=== PATIENT | female | born 1970 | race Caucasian/White ===

== ENCOUNTER 2019-10-10 13:02 | Outpatient (CLI) | payer OTHER, SELFPAY ==
--- NOTE | ~2019-10-10 | MM_ITS ---
EXAMINATION: MM screening arely BI w jeffery HISTORY: Screening mammogram TECHNIQUE: Craniocaudal and mediolateral oblique 3-D tomosynthesis images were obtained and synthetic 2-D images were generated. CAD analysis was submitted and interpreted. COMPARISON: No prior mammogram is available for comparison at this institution. BREAST PARENCHYMAL COMPOSITION: There are scattered areas of fibroglandular density. FINDINGS: RIGHT BREAST: A mass is present in the middle third of the upper breast best appreciated 4 cm from th e nipple on craniocaudal tomosynthesis image 50/76. LEFT BREAST: There is no evidence of suspicious mass, calcification, or architectural distortion to s uggest malignancy. IMPRESSION: 1. Small right breast mass which may represent the patient's baseline however no comparison is curren tly available. 2. Comparison with prior mammograms is necessary. BI-RADS Category 0: Incomplete: Needs comparison with prior mammograms. Reviewed, dictated and finalized at location A. S INSPECTOR IMPRESSION: 1. Small right breast mass which may represent the patient's baseline however n o comparison is currently available. 2. Comparison with prior mammograms is necessary. BI-RADS Category 0: Incomplete: Needs comparison with prior mammograms.
--- NOTE | ~2019-10-10 | DEXA_ITS ---
Bone Density Report Name: Liliya Walls Age: 48 Sex: Female Ethnicity: White Date of : 1970 Indication: postmenopausal; screening for osteoporosis; Referring Provider: SAGAR KINNEY Study: Bone densitometry was performed. Exam Date: October 10, 2019 Accession number: [id number] Bone Density: Region BMD T-score Z-score Classification AP Spine (L1-L4) 0.972 -0.7 0.1 Normal Femoral Neck (Left) 0.604 -2.2 -1.4 Osteopenia Total Hip (Left) 0.853 -0.7 -0.2 Normal Femoral Neck (Right) 0.587 -2.4 -1.6 Osteopenia Total Hip (Right) 0.827 -0.9 -0.4 Normal Total Hip Mean 0.840 -0.8 -0.3 Normal World Health Organization criteria for BMD impression classify patients as: Normal (T-score at or above -1.0), Osteopenia (T-score between -1.0 and -2.5), or Osteoporosis (T-score at or below -2.5). 10-year Fracture Risk: FRAX not reported because: Treated for osteoporosis Clinical Information Provided by Patient: Is being treated for osteoporosis Has used the following medications: HRT (i.e. estrogen/hormone therapy), Vitamin D, DUAVEE, MTV Patient maximum height was 64 Menopause Age: 46 Does not regularly consume dairy products Drinks caffeinated beverages Onset of menses at age 13 Number of children 2 Impression: The patient has low bone mass, based on the Right Femoral Neck T-score. Discussion: It is important to ask patients whether they are taking their medications and to encourage continued and appropriate compliance with their osteoporosis therapies to reduce fracture risk. It is also important to review their risk factors and encourage appropriate calcium and vitamin D intakes, exercise, fall prevention and other lifestyle measures. Follow-Up: Consider a repeat BMD and Vertebral Fracture Assessment (VFA) exam in 2 years or sooner if medically necessary, to reassess this patient's status. Reported by: [facility] on 10/10/2019 2:02:00 PM. Reviewed, dictated and finalized at location AAnila HIGH
== END 2019-10-10 13:03 ==
PROVIDERS: Visit Provider Obstetrics & Gynecology Gynecology
DX: Z12.31 Encounter for screening mammogram for malignant neoplasm of breast (principal); Z78.0 Asymptomatic menopausal state; R92.8 Other abnormal and inconclusive findings on diagnostic imaging of breast; M85.852 Other specified disorders of bone density and structure, left thigh; M85.851 Other specified disorders of bone density and structure, right thigh
CPT/HCPCS: 77063; 77067; 77080

== ENCOUNTER 2020-05-27 15:24 | Outpatient (CLI) | payer OTHER, SELFPAY ==
--- NOTE | ~2020-05-27 | XR_ITS ---
EXAMINATION: XR ribs BI 3V w CXR 2V INDICATION: Pleurodynia and chest pain TECHNIQUE: PA and lateral views of the chest and 3 views of the bilateral ribs were obtained. COMPARISON: None. FINDINGS: There is mild cortical irregularity at the anterolateral aspect of the right ninth rib. No left-sided rib fracture is identified. The lungs are free of acute opacities. There is no pleural eff usion or pneumothorax. The cardiomediastinal silhouette is normal. Calcified pulmonary nodules are co nsistent with old granulomatous disease. Surgical clips in the right upper quadrant are likely from p rior cholecystectomy. IMPRESSION: 1. Nondisplaced fracture at the anterolateral aspect of the right ninth rib. 2. No acute cardiopulmonary abnormality. Reviewed, dictated and finalized at location A.
== END 2020-05-27 15:25 ==
PROVIDERS: PCP Family Medicine; Visit Provider Nurse Practitioner Family
DX: S22.31XA Fracture of one rib, right side, initial encounter for closed fracture (principal); X58.XXXA Exposure to other specified factors, initial encounter
CPT/HCPCS: 71046; 71110

== ENCOUNTER 2020-07-30 06:42 | Outpatient (NON) | payer OTHER, SELFPAY ==
[2020-08-01 21:25] LABS: SARS-CoV-2 RNA PCR Negative
== END 2020-07-30 06:43 ==
PROVIDERS: PCP Family Medicine; Visit Provider Family Medicine
DX: R68.89 Other general symptoms and signs (principal); Z20.828 Contact with and (suspected) exposure to other viral communicable diseases
CPT/HCPCS: 87635; C9803; U0003

== ENCOUNTER 2020-09-16 06:51 | Outpatient (NON) | payer OTHER, SELFPAY ==
[2020-09-17 00:16] LABS: SARS-CoV-2 RNA PCR Negative
== END 2020-09-16 06:52 ==
PROVIDERS: PCP Family Medicine; Visit Provider Physician Assistant Medical
DX: R68.89 Other general symptoms and signs (principal); Z20.822 Contact with and (suspected) exposure to COVID-19
CPT/HCPCS: C9803; U0003; U0005

== ENCOUNTER 2020-11-17 16:55 | Outpatient (CLI) | payer OTHER, SELFPAY ==
[2020-11-17 17:23] LABS: Hemoglobin A1C 8.5 % (<5.7)
== END 2020-11-17 16:56 | disposition home or self-care (01) ==
LOC: ANHLAB 16:56
PROVIDERS: PCP Family Medicine; Visit Provider Nurse Practitioner Family
DX: E11.9 Type 2 diabetes mellitus without complications (principal)
CPT/HCPCS: 36415; 83036

== ENCOUNTER → 2021-01-12 17:16 | Outpatient (CLI) | payer OTHER, SELFPAY ==
--- NOTE | ~2021-01-12 | MM_ITS ---
EXAMINATION: MM screening arely BI w jeffery HISTORY: Screening mammogram TECHNIQUE: Craniocaudal and mediolateral oblique 3-D tomosynthesis images were obtained and synthetic 2-D images were generated. CAD analysis was submitted and interpreted. COMPARISON: 10/10/2019 bilateral digital screening mammogram 01/04/2018, 12/10/2016 bilateral digital screening mammogram examinations BREAST PARENCHYMAL COMPOSITION: There are scattered areas of fibroglandular density. FINDINGS: There is no evidence of suspicious mass, calcification, or architectural distortion to sugg est malignancy in either breast. There has been no suspicious interval change. IMPRESSION: 1. No mammographic evidence of malignancy. 2. Recommend routine screening mammography in one year. BI-RADS Category 1: Negative Reviewed, dictated and finalized at location A.
== END ==
PROVIDERS: PCP Family Medicine; Visit Provider Obstetrics & Gynecology Gynecology
DX: Z12.31 Encounter for screening mammogram for malignant neoplasm of breast (principal)
CPT/HCPCS: 77063; 77067

== ENCOUNTER 2022-01-26 07:30 | Outpatient (CLI) | payer OTHER, SELFPAY ==
[2022-01-26 08:08] LABS: Bacteria Urine Trace /hpf; Mucus Urine Moderate /lpf; RBC Urine 0-2 /hpf (0-2); Squamous Epithelial Cell Urine Occasional /hpf (Few); WBC Urine 0-3 /hpf (0-3)
[2022-01-26 08:25] LABS: Add Urine Microscopic? YES; Appearance Urine Clear (Clear); Bilirubin Urine 1+ (Negative); Blood Urine Negative (Negative); Color Urine Yellow (Yellow); Glucose Urine UA Trace mg/dL (Negative); Ketones Urine 1+ mg/dL (Negative); Leukocyte Esterase Ur Negative LEU/UL (NEGATIVE); Nitrate Urine Negative (Negative); Protein Urine 1+ mg/dL (Negative); Specific Grav Ur >= 1.030 (1.001-1.035); Urobilinogen Urine 0.2 mg/dL (<2.0); pH Urine 5.5 (5.0-9.0)
== END 2022-01-26 07:31 | disposition home or self-care (01) ==
PROVIDERS: PCP Family Medicine; Visit Provider Family Medicine
DX: R31.9 Hematuria, unspecified (principal)
CPT/HCPCS: 81001; 87086; 87088; 87147

== ENCOUNTER 2022-01-28 12:12 | Outpatient (CLI) | payer OTHER, SELFPAY ==
--- NOTE | ~2022-01-28 | US_ITS ---
US renal BI 01/28/2022 13:51 Procedure: Realtime transabdominal ultrasound of the kidneys and bladder. Indication: Bilateral flank pain Comparison: No prior studies for comparison. Findings: Renal echotexture is normal bilaterally without hydronephrosis, contour deforming mass or r enal calculus. The right kidney measures 10.3 cm and left kidney measures 9.3 cm. Bladder within nor mal limits. Impression: 1: Unremarkable renal ultrasound. No stones, masses or hydronephrosis. Reviewed, dictated and finalized at location A. Impression: 1: Unremarkable renal ultrasound. No stones, masses or hydronephrosis.
== END 2022-01-28 12:13 ==
LOC: MICIMG 12:13
PROVIDERS: PCP Family Medicine; Visit Provider Family Medicine
DX: R31.9 Hematuria, unspecified (principal)
CPT/HCPCS: 76775

== ENCOUNTER → 2022-04-02 10:54 | Outpatient (CLI) | payer OTHER, SELFPAY ==
--- NOTE | ~2022-04-02 | DEXA_ITS ---
Bone Density Report Name: ELISA SHERIDAN Age: 51 Sex: Female Ethnicity: White Date of : 1970 Indication: monitoring treatment; postmenopausal Referring Provider: Bubba, Vandana Study: Bone densitometry was performed. Exam Date: April 02, 2022 Accession number: [id number] Bone Density: Region BMD T-score Z-score Classification AP Spine (L1-L4) 0.982 -0.6 0.4 Normal Femoral Neck (Left) 0.577 -2.5 -1.5 Osteoporosis Total Hip (Left) 0.871 -0.6 0.0 Normal Femoral Neck (Right) 0.597 -2.3 -1.3 Osteopenia Total Hip (Right) 0.841 -0.8 -0.2 Normal Total Hip Mean 0.856 -0.7 -0.1 Normal World Health Organization criteria for BMD impression classify patients as: Normal (T-score at or above -1.0), Osteopenia (T-score between -1.0 and -2.5), or Osteoporosis (T-score at or below -2.5). 10-year Fracture Risk: FRAX not reported because: Some T-score for Spine Total or Hip Total or Femoral Neck at or below -2.5 Treated for osteoporosis Previous Exams: Region Exam Age BMD T-score BMD Change BMD Change Date g/cm2 vs Baseline vs Previous AP Spine(L1-L4) 04/02/2022 51 0.982 -0.6 0.009 0.009 10/10/2019 48 0.972 -0.7 Total Hip(Left) 04/02/2022 51 0.871 -0.6 0.018 0.018 10/10/2019 48 0.853 -0.7 Total Hip(Right) 04/02/2022 51 0.841 -0.8 0.014 0.014 10/10/2019 48 0.827 -0.9 *Denotes significance at 95% confidence level, LSC for AP Spine = 0.022 g/cm2, LSC for Total Hip = 0.027 g/cm2 Clinical Information Provided by Patient: Is being treated for osteoporosis Has used the following medications: Boniva (i.e. ibandronate), Vitamin D, MTV Patient maximum height was 64.0 Menopause Age: 46 No regular weight bearing exercise Drinks caffeinated beverages Onset of menses at age 13 Number of children 2 Impression: The patient has osteoporosis, based on the Left Femoral Neck T-score. No significant bone loss was observed. Discussion: PATIENT UNDER TREATMENT WITH NO SIGNIFICANT BMD LOSS SINCE LAST EXAM. In an untreated patient, BMD typically declines with age. A lack of decline or gain is usually a sign that treatment is efficacious and fracture risk is reduced. It is important to ask patients whether they are taking their medications and to encourage continued and appropriate compliance with their osteoporosis therapies to reduce fracture risk. It is also important to review their risk
--- NOTE | ~2022-04-02 | MM_ITS ---
EXAMINATION: MM screening arely BI w jeffery HISTORY: Screening mammogram TECHNIQUE: Craniocaudal and mediolateral oblique 3-D tomosynthesis images were obtained and synthetic 2-D images were generated. CAD analysis was submitted and interpreted. COMPARISON: 01/12/2021, 10/10/2019, 01/04/2018 bilateral screening mammogram examinations BREAST PARENCHYMAL COMPOSITION: There are scattered areas of fibroglandular density. FINDINGS: There is no evidence of suspicious mass, calcification, or architectural distortion to sugg est malignancy in either breast. There has been no suspicious interval change. IMPRESSION: 1. No mammographic evidence of malignancy. 2. Recommend routine screening mammography in one year. BI-RADS Category 1: Negative Reviewed, dictated and finalized at location B.
== END ==
PROVIDERS: PCP Family Medicine; Visit Provider Nurse Practitioner
DX: Z12.31 Encounter for screening mammogram for malignant neoplasm of breast (principal); Z78.0 Asymptomatic menopausal state; M81.0 Age-related osteoporosis without current pathological fracture; M85.851 Other specified disorders of bone density and structure, right thigh
CPT/HCPCS: 77063; 77067; 77080

== ENCOUNTER 2022-06-07 17:27 | Outpatient (CLI) | payer OTHER, SELFPAY ==
[2022-06-07 18:34] LABS: Calcium 9.8 mg/dL (8.4-10.2); Estimated Glomerular Filt Rate > 60
[2022-06-07 18:46] LABS: Vitamin D 25 Hydroxy 48.8 ng/mL
== END 2022-06-07 17:28 | disposition home or self-care (01) ==
PROVIDERS: PCP Family Medicine; Visit Provider Obstetrics & Gynecology Gynecology
DX: M81.0 Age-related osteoporosis without current pathological fracture (principal)
CPT/HCPCS: 36415; 82306; 82310; 82565

== ENCOUNTER 2022-12-22 07:02 | Outpatient (CLI) | payer OTHER, SELFPAY ==
[2022-12-22 07:30] LABS: Hematocrit 43.9 % (37.0-47.0); Hemoglobin 14.1 g/dL (12.0-15.0); Mean Corpuscular HGB Conc 32.1 g/dl (32-36); Mean Corpuscular Hemoglobin 29.1 pg (26-34); Mean Corpuscular Volume 90.7 fl (80-100); Platelet Count Result 197 k/mm3 (150-375); Red Blood Count 4.84 M/mm3 (4.2-5.4); Red Cell Distribution Width 12.4 % (11.5-14.5); White Blood Count 8.7 K/mm3 (4.5-10.0)
[2022-12-22 08:05] LABS: Alanine Aminotransferase 51 U/L (6-35); Albumin Level 4.3 g/dL (3.5-5.1); Alkaline Phosphatase 72 U/L (38-126); Anion Gap 13 mmol/L (8-16); Aspartate Amino Transferase 59 U/L (14-36); Bilirubin,Total 0.7 mg/dL (0.2-1.3); Blood Urea Nitrogen 17 mg/dL (7-17); Calcium 9.2 mg/dL (8.4-10.2); Carbon Dioxide 22 mmol/L (22-30); Chloride 99 mmol/L (98-107); Cholesterol 91 mg/dL (0-200); Estimated Glomerular Filt Rate > 60; Glucose 302 mg/dL (65-110); LDL Cholesterol Direct < 30 mg/dL; Potassium 4.3 mmol/L (3.4-5.0); Sodium 134 mmol/L (137-145); Triglycerides 647 mg/dL (<150)
[2022-12-22 08:12] LABS: Creatinine Urine 242.7 mg/dL
[2022-12-22 08:30] LABS: MALB Creatinine Ratio 133.6 mg/g (0-30); Microalbumin Urine Random 324.3 mg/L (0-16.7)
== END 2022-12-22 07:03 | disposition home or self-care (01) ==
PROVIDERS: PCP Family Medicine; Visit Provider Nurse Practitioner Family
DX: E11.9 Type 2 diabetes mellitus without complications (principal); E78.2 Mixed hyperlipidemia; Z13.29 Encounter for screening for other suspected endocrine disorder
CPT/HCPCS: 36415; 80053; 80061; 82043; 84443; 85027

== ENCOUNTER 2023-08-19 08:15 | Outpatient (CLI) | payer OTHER, SELFPAY ==
[2023-08-19 09:00] LABS: Calcium 9.3 mg/dL (8.4-10.2); Estimated Glomerular Filt Rate > 60
[2023-08-19 09:32] LABS: Vitamin D 25 Hydroxy 48.8 ng/mL
== END 2023-08-19 08:16 | disposition home or self-care (01) ==
LOC: ANHLAB 08:17
PROVIDERS: PCP Family Medicine; Visit Provider Obstetrics & Gynecology Gynecology
DX: E55.9 Vitamin D deficiency, unspecified (principal)
CPT/HCPCS: 36415; 82306; 82310; 82565

== ENCOUNTER 2023-09-22 04:07 | Day surgery (SDC) | payer OTHER, SELFPAY ==
[2023-08-23 15:08] VITALS: BMI 32.7
--- NOTE | 2023-09-20 09:26 | SUR.PREOP ---
Patient called regarding upcoming procedure. Message left on pt's voicemail regarding appointment times..
[2023-09-22 08:08] VITALS: BP 168/81; PULSE 96; RESP 18; TEMP 36.9; O2SAT 97
[2023-09-22] MEDS: LACTATED RINGERS 1,000 ML 150 ML IV CONT (08:16)
[2023-09-22 08:17] LABS: Glucose Point of Care 209 mg/dl (65-105)
--- NOTE | 2023-09-22 08:18 | WPDANESEPPF ---
Anes - Initial Pre Proc Eval Procedure: Operation Date: 09/22/23 09:00 Proposed Procedures p Esophagogastroduodenoscopy - Josh Torres MD Date/Time: 09/22/23 08:18 Surgeon: Josh Torres MD Pre Op Diagnosis: GERD without esophagitis Patient Data Age: 52 Gender: F Height: 1.63 m Weight: 87.2 kg Last Vital Signs Temp 98.4 F 09/22/23 08:08 Pulse 96 09/22/23 08:08 Resp 18 09/22/23 08:08 BP 168/81 H 09/22/23 08:08 Pulse Ox 97 09/22/23 08:08 O2 Del Method Room Air 09/22/23 08:08 Allergies Allergy/AdvReac Type Severity Reaction Status Date / Time No Known Allergies Allergy Verified 09/22/23 08:04 Home Medications Medication Instructions Recorded Confirmed Type diclofenac sodium 1 % topical gel 4 g topical QID #500 grams 02/18/22 08/23/23 Rx metformin 500 mg tablet,extended 2,000 mg PO DAILY #360 tabs 12/21/22 08/23/23 Rx release 24 hr rosuvastatin 40 mg tablet (Crestor) 40 mg PO DAILY #90 tabs 12/21/22 08/23/23 Rx flash glucose scanning reader #1 ea 02/01/23 08/23/23 Rx (FreeStyle Kameron 14 Day [place]) flash glucose sensor (FreeStyle #1 ea 02/01/23 08/23/23 Rx Kameron 14 Day Sensor kit) insulin degludec 100 unit/mL (3 20 unit (0.2 mL) subcut DAILY #15 06/18/23 08/23/23 Rx mL) subcutaneous pen (Tresiba mL FlexTouch U-100 insulin) lisinopril 5 mg tablet 5 mg PO DAILY #30 tabs 06/26/23 08/23/23 Rx pantoprazole 40 mg tablet,delayed 40 mg PO QAM #90 tabs 06/26/23 08/23/23 Rx release trazodone 50 mg tablet 50 mg PO QHS #30 tabs 06/26/23 08/23/23 Rx glimepiride 2 mg tablet 2 mg PO QAM #90 tabs 07/29/23 08/23/23 Rx pregabalin 50 mg capsule (Lyrica) 50 mg PO BID #60 caps 08/11/23 08/23/23 Rx tirzepatide 5 mg/0.5 mL 5 mg (0.5 mL) subcut WEEKLY #2 mL 09/05/23 09/22/23 Rx subcutaneous pen injector (Mounjaro) Laboratory Tests 09/22/23 08:13 POC Capillary Glucose 209 H mg/dl (65-105) Patient hx anesthesia problems: none Family hx anesthesia problems: none Results Review: All pre-operative results and documents have been reviewed as part of the pre-operative evaluation. [facility] Past Medical History Medical History BMI 32.0-32.9,adult BMI 33.0-33.9,adult BMI 34.0-34.9,adult BMI 36.0-36.9,adult BMI greater than 30 BMI over 35 COVID Elevated liver function tests Essential (primary) hypertension Headache Hematuria Mixed hyperlipidemia Numbness and tingling of foot Right flank pain Type 2 diabetes mellitus without complications Uncontrolled type 2 diabetes mellitus with complication, without long-term current use of insulin Family History Family History Father Heart disease Dementia Hypertension Mother No problems noted. 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
--- NOTE | 2023-09-22 08:45 | PM.HPGS ---
History of Present Illness History of Present Illness Consent: Risks, benefits, and alternatives have been discussed and questions answered. Patient agrees to proceed with procedure. Chief complaint: GERD without esophagitis Narrative: Liliya Walls is a 52 year old female with gerd using ppi for almost 10 years, lately more symptomatic but never had egd Review of Systems Constitutional: Constitutional: Denies headache(s) and Denies weakness Eyes: Eyes: Denies blurry vision ENT: Reports Normal hearing present, Denies headache(s) and Denies neck pain Cardiovascular: Cardiovascular: Denies chest pain and Denies dyspnea Respiratory: Respiratory: Denies dyspnea Gastrointestinal: Gastrointestinal: Reports no additional gastrointestinal complaints Genitourinary: Genitourinary: Denies dysuria Musculoskeletal: Musculoskeletal: Denies neck pain Integumentary/Breasts: Skin/Breast: Denies dry skin Neurologic: Reports Normal hearing present, Denies headache(s) and Denies weakness Psychiatric: Psychiatric: Denies anxiety Endocrine: Endocrine: Denies change in body appearance Hematologic/Lymphatic: Hematologic/Lymphatic: Denies easy bleeding Allergic/Immunologic: Allergic/Immunologic: Denies urticaria PMFSH Past Medical History Medical History BMI 32.0-32.9,adult BMI 33.0-33.9,adult BMI 34.0-34.9,adult BMI 36.0-36.9,adult BMI greater than 30 BMI over 35 COVID Elevated liver function tests Essential (primary) hypertension Headache Hematuria Mixed hyperlipidemia Numbness and tingling of foot Right flank pain Type 2 diabetes mellitus without complications Uncontrolled type 2 diabetes mellitus with complication, without long-term current use of insulin Family History Family History Father Heart disease Dementia Hypertension Mother No problems noted. 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 Gender identity (if verbalized by the patient): Female Spiritual care concerns: No Meds Home Medications and Allergies Home Medications Medication Instructions Recorded Confirmed Type diclofenac sodium 1 % topical gel 4 g topical QID #500 grams 02/18/22 08/23/23 Rx metformin 500 mg tablet,extended 2,000 mg PO DAILY #360 tabs 12/21/22 08/23/23 Rx release 24 hr rosuvastatin 40 mg tablet (Crestor) 40 mg PO DAILY #90 tabs 12/21/22 08/23/23 Rx flash glucose scanning reader #1 ea 02/01/23 08/23/23 Rx (FreeStyle Kameron 14 Day [place]) flash glucose sensor (FreeStyle #1 ea 02/01/23 08/23/23 Rx Kameron 14 Day Sensor kit) insulin degludec 100 unit/mL (3 20 unit (0.2 mL) subcut DAILY #15 06/18/23 08/23/23 Rx mL) subcutaneous pen (Tresiba mL FlexTouch U-100 insulin) lisinopril 5 mg tablet 5 mg PO DAILY #30 tabs 06/26/23 08/23/23 Rx pantoprazole 40 mg tablet,delayed 40 mg PO QAM #90 tabs 06/26/23 08/23/23 Rx release trazodone 50 mg tablet 50 mg PO QHS #30 tabs 06/26/23 08/23/23 Rx glimepiride 2 mg tablet 2 mg PO QAM #90 tabs 07/29/23 08/23/23 Rx pregabalin 50 mg capsule (Lyrica) 50 mg PO BID #60 caps 08/11/23 08/23/23 Rx tirzepatide 5 mg/0.5 mL 5 mg (0.5 mL) subcut WEEKLY #2 mL 09/05/23 09/22/23 Rx gr
[2023-09-22 08:58] VITALS: BP 146/86; PULSE 86; RESP 18; O2SAT 95
[2023-09-22 09:08] VITALS: BP 163/88; PULSE 88; RESP 23; O2SAT 98
[2023-09-22 09:18] VITALS: BP 166/87; PULSE 87; RESP 19; O2SAT 97
== END 2023-09-22 09:27 | disposition home or self-care (01) ==
PROVIDERS: PCP Family Medicine; Visit Provider Internal Medicine Gastroenterology
PROC: 0DJ08ZZ Inspection of Upper Intestinal Tract, Via Natural or Artificial Opening Endoscopic (ICD-10-PCS; CPT 43235; principal; 2023-09-22 09:00)
DX: K21.9 Gastro-esophageal reflux disease without esophagitis (principal); I10 Essential (primary) hypertension; E78.2 Mixed hyperlipidemia; E11.9 Type 2 diabetes mellitus without complications; E66.9 Obesity, unspecified; Z79.84 Long term (current) use of oral hypoglycemic drugs; Z79.4 Long term (current) use of insulin; Z79.85 Long-term (current) use of injectable non-insulin antidiabetic drugs; Z82.49 Family history of ischemic heart disease and other diseases of the circulatory system; Z80.3 Family history of malignant neoplasm of breast; Z68.33 Body mass index [BMI] 33.0-33.9, adult
CPT/HCPCS: 43239; 82948; 88305; J2704; J7120

== ENCOUNTER 2023-11-24 14:08 | Outpatient (CLI) | payer OTHER, SELFPAY ==
--- NOTE | ~2023-11-24 | MM_ITS ---
EXAMINATION: MM screening arely BI w jeffery HISTORY: Screening TECHNIQUE: Craniocaudal and mediolateral oblique 3-D tomosynthesis images were obtained and synthetic 2-D images were generated. CAD analysis was submitted and interpreted. COMPARISON: Comparison to multiple prior studies sequentially, with oldest reviewed study dated 03/2017. BREAST PARENCHYMAL COMPOSITION: Not dense: There are scattered areas of fibroglandular density. FINDINGS: There is no evidence of suspicious mass, calcification, or architectural distortion to sugg est malignancy in either breast. There has been no suspicious interval change. IMPRESSION: 1. No mammographic evidence of malignancy. 2. Recommend routine screening mammography in one year. BI-RADS Category 1: Negative Reviewed, dictated and finalized at location A.
== END 2023-11-24 14:09 ==
LOC: MICIMG 14:09
PROVIDERS: PCP Family Medicine; Visit Provider Obstetrics & Gynecology Gynecology
DX: Z12.31 Encounter for screening mammogram for malignant neoplasm of breast (principal)
CPT/HCPCS: 77063; 77067

== ENCOUNTER 2025-05-08 10:19 | Outpatient (CLI) | payer OTHER, SELFPAY ==
--- NOTE | ~2025-05-08 | MM_ITS ---
EXAMINATION: MM screening [facility] BI w jeffery HISTORY: Screening TECHNIQUE: Craniocaudal and mediolateral oblique 3-D tomosynthesis images were obtained and synthetic 2-D images were generated. CAD analysis was submitted and interpreted. COMPARISON: Mammograms from 11/24/2023 and 04/02/2022 BREAST PARENCHYMAL COMPOSITION: There are scattered areas of fibroglandular density. FINDINGS: There is no evidence of suspicious mass, calcification, or architectural distortion in either breast to suggest malignancy. There has been no significant interval change. IMPRESSION: 1. No mammographic evidence of malignancy. Recommend routine screening mammography in one year. BI-RADS Category 1: Negative Reviewed, dictated and finalized at location Q. IMPRESSION: 1. No mammographic evidence of malignancy. Recommend routine screening mammogra phy in one year. BI-RADS Category 1: Negative
--- OUTSIDE RECORDS SUMMARY | 2025-05-08 11:48 | XMS_ITS | Clinical Summary ---
Author Organization 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 This disclosure is being madepursuant to the Care Everywhere program and may not contain all information available regarding this patient. Last updated 18.[facility] [employer] Allergies No known active allergies Medications * Be aware that medications may not be up to date on this document. Alwaysverify current medications with the patient. PROAIR HFA 108 (90 BASE) MCG/ACT inhaler as needed 02/02/2015 Act miguelina furosemide (LASIX) 20 MG tablet 20 mg once daily 02/28/2015 Active ibuprofen (MOTRIN) 400 MG tablet as needed 12/21/2014 Active omeprazole (PRILOSEC) 40 MG capsule 03/31/2015 Active JANUMET XR 50-1000 MG tablet 03/13/2015 Active cetirizine (ZYRTEC) 10 MG tablet Take 10 mg by mouth once daily Active Active Problems Problem Noted Date Diagnosed Date Leukocytosis 04/02/2015 Family History Medical History Relation Name Comments Non-contributory Father Non-contributory Mother Relation Name Status Comments Father Mother Social History Tobacco Use Types Packs/Day Years Used Date Smoking Tobacco: Never Alcohol Use Standard Drinks/Week Comments Not Asked 0 (1 standard drink = 0.6 oz pur e alcohol) Comments No Sex and Gender Information Value Date Recorded Sex Assigned at Not on file Legal Sex Female 5:07 PM CDT Gender Identity Not on file Sexual Orientation Not on file Last Filed Vital Signs Vital Sign Reading Time Taken Comments Blood Pressure 135/83 04/16/2015 12:08 PM CDT Pulse 87 04/16/2015 12:08 PM CDT Temperature 36.5 C (97.7 F) 04/16/2015 12:08 PM CDT Respiratory Rate - - Oxygen Saturation - - Inhaled Oxygen Concentration - - Weight 95.5 kg (210 lb 8 oz) 04/16/2015 12:08 PM CDT Height 160 cm (5' 3) 04/16/2015 12:08 PM CDT Body Mass Index 37.29 04/16/2015 12:08 PM CDT Plan of Treatment Health Maintenance Due Date Last Done Comments COLOGUARD (AGES 45-75) - COL ON CA SCREENING 1970 COLON MONITORING 1968 COLONOSCOPY - COLON CA SCREENING 1968 CT COLONOGRAPHY - COLON CA SCREENING 1970 Colorectal Cancer Screening 1968 FIT - COLON CA SCREENING 1968 FLEX SIG - COLON CA SCREENING 1968 LIPID TESTING 1970 MAMMOGRAM 1968 HIV SCREENING 1983 HEPATITIS C SCREENING 10/17/1986 DTAP/TDAP/TD VACCINES (1 - Tdap) 1987 HEPATITIS B VACCINE (1 of 3 - 19+ 3-dose series) 1987 PAP SMEAR 1989 PNEUMOCOCCAL VACCINE 50+ (1 of 1 - PCV) 2018 ZOSTER VACCINE (1 of 2) 2018 COVID-19 VACCINE (1 - 2023-2 5 season) 2024 DEPRESSION SCREENING 09/05/2024 INFLUENZA VACCINE (#1) 2025 HIB VACCINE Aged Out No longer eligi ble based on patient's age to complete this topic HPV VACCINE Aged Out No longer eligi ble based on patient's age to complete this topic MENINGOCOCCAL (Group B) VACC INE SHARED DECISION-MAKING Aged Out No longer eligibl e based on patient's age to complete this topic MENINGOCOCCAL GROUPS A/C/Y/W VACCINE Aged Out No longer eligible b ased on patient's age to complete this topic Insurance [facility] SELF PAY NO INSURANCE Member Subscriber Plan / Payer (Ef fective for All Dates) Name:Fatimah Elisa Member ID:Not on file Relation to Subscriber:Not on file Name:GHASSANJENNYELISA MARIN Subscriber ID:Not on file Address: [address] [place] [phone] Payer ID:Not on file Group ID:Not on file Type:Self Pay Address: [place], [place]
--- OUTSIDE RECORDS SUMMARY | 2025-05-08 11:48 | XMS_ITS | Clinical Summary ---
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 Name Role Phone Oc Lau MD Primary Care Provider Social History Tobacco Use Types Packs/Day Years Used Date Smoking Tobacco: Never Assessed Comments Unknown Sex and Gender Information Value Date Recorded Sex Assigned at Not on file Legal Sex Female 8:08 PM CDT Gender Identity Not on file Sexual Orientation Not on file Plan of Treatment Health Maintenance Due Date Last Done Comments Cervical Cancer Screening Pa p Smear (Age 30 to 64) Every 3 Years 1968 Colorectal Cancer Screening Colonoscopy (10 Years) 1968 Annual Physical 1971 DTaP, Tdap and Td Vaccines ( 1 - Tdap) 1987 Hepatitis B Vaccines (1 of 3 - 19+ 3-dose series) 1987 Cervical Cancer Screening Pa p with HPV Testing (Age 30 to 64) Every 5 Years 1998 Cervical Cancer Screening with HPV 1998 Mammogram Screening 2008 Pneumococcal Vaccine: 50+ Ye ars (1 of 1 - PCV) 2018 Zoster Vaccines (1 of 2) 2018 COVID-19 Vaccine (2023-2 5 season) 2025 Hepatitis C Completed 07/22/2018 Meningococcal B Vaccine Aged Out No l onger eligible based on patient's age to complete this topic Meningococcal Vaccine Aged Out No jordan chrissie eligible based on patient's age to complete this topic RSV Immunizations Under 20 Months Aged Out No longer eligible based on patient's age to complete this topic Procedures Procedure Name Priority Date/Time Associated Diagnosis Comments HEPATITIS A,B,& C Routine 07/22/2018 10: 02 AM SHEET TAKER from Last 3 Months or Most Recently Relevant to Health Maintenance Results * HEPATITIS A,B,& C (07/22/2018 10:02 AM SHEET TAKER) HEPATITIS B SURFACE AG NON-REACTI VE NON-REACTI VE 07/22/2018 2:54 PM SHEET TAKER [facility] HEP B CORE TOTAL AB NON-REACTI VE NON-REACTI VE 07/22/2018 3:20 PM SHEET TAKER [facility] HEP B SURFACE AB NON-REACTI VE 07/22/2018 2:53 PM SHEET TAKER [facility] HAV IGM NON-REACTI VE NON-REACTI VE 07/22/2018 3:22 PM SHEET TAKER [facility] HEPATITIS C AB NON-REACTI VE NON-REACTI VE 07/22/2018 3:20 PM SHEET TAKER [facility] 07/22/2018 10:0 2 AM SHEET TAKER 07/22/2018 11:03 AM SHEET TAKER us Generic Conversion Md [facility] Final R esult [facility] [address] [place] [address], [place] [phone] from Last 3 Months or Most Recently Relevant to Health Maintenance Insurance [facility] Care Teams Silk Screen Repairer Relationship Specialty Start Date End Date Oc Lau MD [address] [address] PCP - General FAMILY PRACTICE 02/20/19
--- OUTSIDE RECORDS SUMMARY | 2025-05-08 11:48 | XMS_ITS | Clinical Summary ---
Author Organization [facility] [employer] Address [address] [place] [address] Care Team Providers Care Salesperson Women'S Dresses Name Role Phone Oc Lau MD Primary Care Provider + [phone] Allergies No known active allergies Medications Trulicity 1.5 mg/0.5 mL pen injector INJECT THE CONTENTS OF ONE PEN SUBCUTANEOUSLY ONCE WEEKLY 2 Active glimepiride (AMARYL) 2 mg tablet TAKE 1 TABLET BY MOUTH IN THE MORNING WITH BREAKFAST 2 Active ibandronate (BONIVA) 150 mg tablet TAKE 1 TABLET BY MOUTH ONCE EVERY MONTH 2 Active metFORMIN XR (GLUCOPHAGE XR) 500 mg 24 hr tablet Take 2,000 mg by mouth daily 2 Active omeprazole (PriLOSEC) 40 mg capsule Take 40 mg by mouth daily 2 Active pregabalin (LYRICA) 50 mg capsule 2 Active rosuvastatin (CRESTOR) 40 mg tablet Take 40 mg by mouth daily 2 Active traZODone (DESYREL) 50 mg tablet Take 50 mg by mouth nightly at bedtime. 2 Active Active Problems Problem Noted Date Diagnosed Date Tinnitus of right ear 12/31/2021 Surgical History Surgery Date Site/Laterality Comments TUBAL LIGATION CHOLECYSTECTOMY Medical History Medical History Date Comments Allergic rhinitis Diabetes (HCC) Sinusitis Family History Medical History Relation Name Comments Hypertension Father Family history of hypertension - (Added by TW Conv) Cancer Sister Relation Name Status Comments Father Sister Social History Tobacco Use Types Packs/Day Years Used Date Smoking Tobacco: Never Smokeless Tobacco: Never Personal Safety Answer Date Recorded Getting School Help Needed Not on file 11/18 Comments Unknown Sex and Gender Information Value Date Recorded Sex Assigned at Not on file 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 Gender Identity Not on file Sexual Orientation Not on file Obstetrics History Last Filed Vital Signs Vital Sign Reading Time Taken Comments Blood Pressure 118/89 02/25/2015 3:24 PM CDT Pulse - - Temperature - - Respiratory Rate 17 12/31/2021 10:24 AM CDT Oxygen Saturation - - Inhaled Oxygen Concentration - - Weight 91.2 kg (201 lb) 12/31/2021 10:24 AM CDT Height 162.6 cm (5' 4) 12/31/2021 10:24 AM CDT Body Mass Index 34.5 12/31/2021 10:24 AM CDT Plan of Treatment Health Maintenance Due Date Last Done Comments Cervical Cancer Screening 1968 Colon Cancer Screening-Colonoscopy 1968 Depression Screening 1968 Hepatitis C Screening 1968 DTaP/Tdap/Td Vaccine (1 - Tdap) 1979 Hepatitis B Screening 1986 Regular Well Visit/Exam 18-64 1986 Zoster Vaccine (1 of 2) 2018 Breast Cancer Screening-Mammogram 01/04/2019 01/04/2018, 12/10/2016, 08/22/2015 Covid-19 Vaccine (4 2023-2 5 season) 2024 07/09/2021, 11/22/2020, 11/01/2020 Influenza Vaccine (#1) 2025 06/23/2018 Pneumococcal vaccine <65 Aged Out No longer eligible based on patient's age to complete this topic Procedures Procedure Name Priority Date/Time Associated Diagnosis Comments SCREENING MAMMOGRAM 2D BILATERAL Routine 01/04/2018 8:03 AM CDT from Last 3 Months or Most Recently Relevant to Health Maintenance Results * Screening Mammogram 2D Bilateral (01/04/2018 8:03 AM CDT) Anatomical Region Laterality Modality Breast Bilateral Mammography 01/04/2018 8:03 AM CDT Impressions 01/04/2018 8:42 AM CDT BI-RAD 1 NEGATIVE There is no mammographic evidence of malignancy. A 1 year screening mammogram is recommended. The patient has been or will be contacted. The patient will be entered into a reminder system with a target due date of 1 year for her next screening exam. Electronically signed by: Dr. Dami Lmoeli M.D. nh/penrad:01/04/2018 08:40:58 Hand Braille Transcriber: Teri Ponce, [facility] letter sent: Normal Exam Reading location: [facility] BI-RADS: 1 Negative [EOD] Narrative 01/04/2018 8:42 AM CDT - MG BILATERAL DIGITAL SCREENING MAMMOGRAM WITH MEDIOLATERAL OBLIQUE CRANIOCAUDAL: 01/04/2018 The study was acquired using full field digital technology and interpreted from soft copy. CLINICAL: Routine mammogram. Denies any problems today. No personal history of breast cancer. No family history of breast cancer. COMPARISONS: Comparison is made to exams dated: 12/10/2016 mammogram and 08/22/2015 mammogram - [facility]. BREAST TISSUE: There are scattered areas of fibroglandular density. FINDINGS: No significant masses, calcifications, or other findings are seen in either breast. There has been no significant interval change. Procedure Note Provider, MD Rodolfo - 01/21/2021 - MG BILATERAL DIGITAL SCREENING MAMMOGRAM WITH MEDIOLATERAL OBLIQUECRANIOCAUDAL: 01/04/2018 The study was acquired using full field digital technology and interpretedfrom soft copy. CLINICAL: Routine mammogram. Denies any problems today. No personalhistory of breast cancer. No family history of breast cancer. COMPARISONS: Comparison is made to exams dated: 12/10/2016 mammogram and 08/22/2015 mammogram - [facility]. BREAST TISSUE: There are scattered areas of fibroglandular density. FINDINGS: No significant masses, calcifications, or other findings areseen in either breast. There has been no significant interval change. IMPRESSION: BI-RAD 1 NEGATIVE There is no mammographic evidence of malignancy. A 1 year screeningmammogram is recommended. The patient has been or will be contacted. The patient will be entered into a reminder system with a target due dateof 1 year for her next screening exam. Electronically signed by: Dr. Dami Lomeli M.D. tn/penrad:01/04/2018 08:40:58 Hand Braille Transcriber: [facility] letter sent: Normal Exam Reading location: [facility] BI-RADS: 1 Negative [EOD] oSng Grider MD IMG MAMMO PROCEDURES Final Result from Last 3 Months or Most Recently Relevant to Health Maintenance Insurance [employer] OPEN ACCESS Care Teams Salesperson Women'S Dresses Relationship Specialty Start Date End Date Oc Lau MD PCP - General Family Medicine 12/01/21
== END 2025-05-08 10:20 | disposition home or self-care (01) ==
LOC: CHSIMG 10:23
PROVIDERS: PCP Family Medicine; Visit Provider Obstetrics & Gynecology Gynecology
DX: Z12.31 Encounter for screening mammogram for malignant neoplasm of breast (principal); E55.9 Vitamin D deficiency, unspecified
CPT/HCPCS: 36415; 77063; 77067; 82306

== ENCOUNTER 2025-06-03 08:12 | Outpatient (CLI) | payer OTHER, SELFPAY ==
--- OUTSIDE RECORDS SUMMARY | 2025-06-03 08:23 | XMS_ITS | Clinical Summary ---
Author Organization [facility] Address [address] [place] [address] Care Team Providers Care Interlocker Maintainer Name Role Phone Oc Lau MD Primary Care Provider [phone] Social History Tobacco Use Types Packs/Day Years [...] A,B,& C Routine 07/22/2018 10: 02 AM TRIM LINE WORKER from Last 3 Months or Most Recently Relevant to Health Maintenance Results * HEPATITIS A,B,& C (07/22/2018 10:02 AM TRIM LINE WORKER) HEPATITIS B SURFACE AG NON-REACTI VE NON-REACTI VE 07/22/2018 2:54 [address] [facility] HEP B CORE TOTAL AB NON-REACTI VE NON-REACTI VE 07/22/2018 3:[address] [facility] HEP B SURFACE AB NON-REACTI VE 07/22/2018 2:53 [address] [facility] HAV IGM NON-REACTI VE NON-REACTI VE 07/22/2018 3:[address] [facility] HEPATITIS C AB NON-REACTI VE NON-REACTI VE 07/22/2018 3:[address] [facility] 07/22/2018 10:0 2 AM TRIM LINE WORKER 07/22/2018 11:03 AM TRIM LINE WORKER us Generic Conversion Md [facility] Final R esult [facility] [address] [place] [address], [place] [phone] from Last 3 Months or Most Recently Relevant to Health Maintenance Insurance [facility] Care Teams Interlocker Maintainer Relationship Specialty Start Date End Date Oc Lau MD [address] [address] PCP - General FAMILY PRACTICE 02/20/19
--- OUTSIDE RECORDS SUMMARY | 2025-06-03 08:23 | XMS_ITS | Clinical Summary ---
Author Organization [facility] Address [address] [facility] [place] [address] Care Team Providers Care Computer Scientist Name Role Phone Unavailable Primary Care Provider Unavailabl e Source Comments [facility],non-owned Affiliates and Associated Physician Practices is amultiple site organization consisting of ambulatory clinics and hospital sitesin [place], [place], [place] and [place]. This disclosure is being madepursuant to the Care Everywhere program and may not contain all information available regarding this patient. Last updated 18.[facility] Allergies No known active allergies Medications * [...] 2018 ZOSTER VACCINE (1 of 2) 2018 DEPRESSION SCREENING 09/05/2024 COVID-19 VACCINE (1 - 2023-2 5 season) 2025 INFLUENZA VACCINE (#1) 2025 HIB VACCINE Aged [...] patient's age to complete this topic Insurance [facility] SELF PAY NO INSURANCE Member Subscriber Plan / Payer (Ef fective for All Dates) Name:Fatimah Elisa Member ID:Not on file Relation to Subscriber:Not on file Name:GHASSANJENNYELISA MARIN Subscriber ID:Not on file Address: [address] [place] [id number] Payer ID:Not on file Group ID:Not on file Type:Self Pay Address: [place], [place]
--- OUTSIDE RECORDS SUMMARY | 2025-06-03 08:23 | XMS_ITS | Clinical Summary ---
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 Electronically signed by: Dr. Dami white/maría elena:01/04/2018 08:40:58 Electronic Engineering Technician: Teri Ponce [facility] letter sent: Normal Exam Reading location: [facility] BI-RADS: 1 Negative [EOD] Narrative 01/04/2018 8:42 [...] dated: 12/10/2016 mammogram and 08/22/2015 mammogram - [facility]. BREAST TISSUE: There are scattered [...] dated: 12/10/2016 mammogram and 08/22/2015 mammogram - [facility]. BREAST TISSUE: There are scattered [...] Electronically signed by: Dr. Dami Lomeli M.D. ms/maría elena:01/04/2018 08:40:58 Electronic Engineering Technician: [facility] letter sent: Normal Exam Reading location: [facility] BI-RADS: 1 Negative [EOD] Song Grider MD IMG MAMMO PROCEDURES Final Result from Last 3 Months or Most Recently Relevant to Health Maintenance Insurance [employer] OPEN ACCESS Care Teams Curtain Hemmer Automatic Relationship Specialty Start Date End Date Oc Lau MD PCP - General Family Medicine 12/01/21
[2025-06-03 08:29] VITALS: BP 120/65; PULSE 80; RESP 14; TEMP 36.6; O2SAT 98; BMI 31.0
[2025-06-03] MEDS: ZOLEDRONIC ACID 5 MG/100 ML 100 ML 400 MG IVPB (08:40)
--- NOTE | 2025-06-03 09:04 | PC.NURSE ---
Patient only had to have Calcium level prior not CBC. Had to say yes to CBC on MAR in order to proceed. Tolerated Reclast infusion well. SEE MAR and patient care notes.
[2025-06-03 09:10] VITALS: BP 121/63; PULSE 78; RESP 14
== END 2025-06-03 08:13 | disposition home or self-care (01) ==
PROVIDERS: PCP Family Medicine; Visit Provider Obstetrics & Gynecology Gynecology
DX: M81.0 Age-related osteoporosis without current pathological fracture (principal)
CPT/HCPCS: 96374; J3489

== ENCOUNTER 2025-08-20 16:28 | Outpatient (CLI) | payer OTHER, SELFPAY ==
[2025-08-20 17:51] LABS: Hematocrit 41.6 % (37.0-47.0); Hemoglobin 14.0 g/dL (12.0-15.0); Mean Corpuscular HGB Conc 33.7 g/dl (32-36); Mean Corpuscular Hemoglobin 29.4 pg (26-34); Mean Corpuscular Volume 87.2 fl (80-100); Platelet Count Result 234 k/mm3 (150-375); Red Blood Count 4.77 M/mm3 (4.2-5.4); White Blood Count 10.4 K/mm3 (4.5-10.0)
[2025-08-20 18:02] LABS: Alanine Aminotransferase 40 U/L (6-35); Albumin Level 4.6 g/dL (3.5-5.1); Alkaline Phosphatase 53 U/L (38-126); Anion Gap 9 mmol/L (4-12); Aspartate Amino Transferase 36 U/L (14-36); Bilirubin,Total 0.5 mg/dL (0.2-1.3); Blood Urea Nitrogen 17 mg/dL (7-17); Calcium 9.8 mg/dL (8.4-10.2); Carbon Dioxide 27 mmol/L (22-30); Chloride 102 mmol/L (98-107); Estimated Glomerular Filt Rate 59; Glucose 220 mg/dL (65-110); Potassium 4.1 mmol/L (3.4-5.0); Sodium 138 mmol/L (137-145); Total Protein 8.0 g/dL (6.3-8.2)
--- OUTSIDE RECORDS SUMMARY | 2025-08-20 18:07 | XMS_ITS | Clinical Summary ---
Author Organization [facility] Address [address] [place] [address] Care Team Providers Care Fly Finisher Name Role Phone Unavailable Primary Care Provider Unavailabl e Source Comments [facility] [employer],non-owned Affiliates and Associated Physician Practices is amultiple site organization consisting of ambulatory clinics and hospital sitesin [place], [place], [place] and [place]. This disclosure is being madepursuant to the Care Everywhere program and may not contain all information available regarding this patient. Last updated 18.[facility] [employer] [facility] Allergies No known active allergies Medications * [...] 2) 2018 DEPRESSION SCREENING 09/05/2024 COVID-19 VACCINE ( - 2024-2 6 season) 2025 INFLUENZA VACCINE (#1) 2025 HIB [...] patient's age to complete this topic Insurance [facility] SELF PAY NO INSURANCE Member Subscriber Plan / Payer (Ef fective for All Dates) Name:Fatimah Elisa Member ID:Not on file Relation to Subscriber:Not on file Name:GHASSANJENNYELISA MARIN Subscriber ID:Not on file Address: [address] [place] [id number] Payer ID:Not on file Group ID:Not on file Type:Self Pay Address: [place], [place]
--- OUTSIDE RECORDS SUMMARY | 2025-08-20 18:07 | XMS_ITS | Clinical Summary ---
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
--- OUTSIDE RECORDS SUMMARY | 2025-08-20 18:07 | XMS_ITS | Clinical Summary ---
Author Organization [facility] Address [address] [place] [address] Care Team Providers Care Power Plant Mechanic Name Role Phone Oc Lau MD Primary Care Provider [phone] Social History Tobacco Use Types Packs/Day Years [...] Colonoscopy (10 Years) 1968 Annual Physical 1971 Hepatitis C 1986 DTaP, Tdap and Td Vaccines ( 1 [...] Vaccines (1 of 2) 2018 COVID-19 Vaccine (2024-2 6 season) 2025 Influenza Adult (#1) 2025 Hepatitis A Vaccines Aged Out No long er eligible based on patient's age to complete this topic Meningococcal B Vaccine Aged Out No l onger eligible based on patient's age to complete this topic Meningococcal Vaccine Aged Out No jordan chrissie eligible based on patient's age to complete this topic RSV Immunizations Under 20 Months Aged Out No longer eligible based on patient's age to complete this topic Insurance [facility] Care Teams Power Plant Mechanic Relationship Specialty Start Date End Date Oc Lau MD [address] [address] PCP - General FAMILY PRACTICE 02/20/19
[2025-08-20 18:51] LABS: MALB Creatinine Ratio 87.4 mg/g (0-30)
== END 2025-08-20 16:29 | disposition home or self-care (01) ==
PROVIDERS: PCP Family Medicine; Visit Provider Family Medicine
DX: I10 Essential (primary) hypertension (principal); E11.8 Type 2 diabetes mellitus with unspecified complications; E11.65 Type 2 diabetes mellitus with hyperglycemia; R79.89 Other specified abnormal findings of blood chemistry
CPT/HCPCS: 36415; 80048; 80076; 82043; 85027